=== PATIENT | male | born 1990 | race American Indian/Alaskan Native ===

== ENCOUNTER 2021-11-22 02:46 | Emergency (ER) | payer SELFPAY ==
[2021-11-22] MEDS ORDERED: ONDANSETRON 4 MG/2 ML INJ IV ONE (03:36)
[2021-11-22] MEDS ORDERED: SODIUM CHLORIDE 0.9% 1000 ML 1,000 ML IV ONE (03:36)
[2021-11-22] MEDS ORDERED: fentaNYL 100 MCG/2 ML INJ IV ONE (03:36)
--- NOTE | 2021-11-22 03:40 | Emergency Department Report ---
HPI - [facility] HPI: Room 20 Patient is a 31-year-old male present with a chief complaint of abdominal pain. Patient states his symptoms began approximate 2 hours ago with onset of right- sided abdominal pain described as being sharp in nature. Patient states the pain is been intermittent. Patient developed nausea vomiting. Patient currently gives his pain score 6/10. Patient states he was in his usual state of health earlier in the day. Patient denies any previous episodes of this pain <PATRIA ATKINS - Last Filed: 11/22/21 03:37> <INES MULTANI - Last Filed: 11/22/21 07:07> - General Chief Complaint: Abdominal Pain Time Seen by Provider: 11/22/21 03:27 ED Past Medical Hx - Past Medical History Previous Medical History?: No - Surgical History Past Surgical History?: No - Family History Family history: no significant - Social History Smoking Status: Current Some Day Smoker (Vape) Substance Use Type: Alcohol (Occasional), Marijuana <PATRIA ATKINS - Last Filed: 11/22/21 03:37> <INES MULTANI - Last Filed: 11/22/21 07:07> - Medications Home Medications: Home Medications Medication Instructions Recorded Confirmed Last Taken Type Acetaminophen [Non-Aspirin Extra 500 mg PO Q6HR PRN #30 tablet 11/22/21 Unknown Rx Strength] Ibuprofen [Motrin] 600 mg PO Q8H PRN #30 tablet 11/22/21 Unknown Rx Ondansetron [Zofran Odt] 4 mg PO Q8HR PRN #20 tab.rapdis 11/22/21 Unknown Rx ED Review of Systems ROS: Stated complaint: STOMACH PAINS Other details as noted in HPI Constitutional: no symptoms reported Eyes: denies: eye pain ENT: denies: throat pain Respiratory: no symptoms reported Cardiovascular: denies: chest pain Endocrine: no symptoms reported Gastrointestinal: abdominal pain, nausea, vomiting Genitourinary: denies: dysuria Musculoskeletal: denies: back pain Neurological: denies: headache <PATRIA ATKINS - Last Filed: 11/22/21 03:37> ROS: Stated complaint: STOMACH PAINS Other details as noted in HPI <INES MULTANI - Last Filed: 11/22/21 07:07> Physical Exam - Physical Exam Vital Signs: Vital Signs 11/22/21 03:06 Temperature 97.8 F Pulse Rate 53 L Respiratory 20 Rate Blood Pressure 103/65 [Right] O2 Sat by Pulse 100 Oximetry Physical Exam: GENERAL: The patient is well-developed well-nourished male lying on stretcher no t appearing to be in acute distress. [] HEENT: Normocephalic. Atraumatic. Extraocular motions are intact. Patient has moist mucous membranes. NECK: Supple. Trachea midline CHEST/LUNGS: Clear to auscultation. There is no respiratory distress noted. HEART/CARDIOVASCULAR: Regular. There is no tachycardia. There is no gallop rub or murmur. ABDOMEN: Abdomen is soft, palpation to the right side of the abdomen does not worsen the pain. There is no rebound or guarding. Patient has normal bowel sounds. There is no abdominal distention. SKIN: There is no rash. There is no edema. There is no diaphoresis. NEURO: The patient is awake, alert, and oriented. The patient is cooperative. The patient has no focal neurologic deficits. The patient has normal speech. GCS 15 MUSCULOSKELETAL: There is no CVA tenderness bilaterally. There is no evidence of acute injury. <PATRIA ATKINS - Last Filed: 11/22/21 03:37> - Physical Exam Vital Signs: Vital Signs 11/22/21 11/22/21 11/22/21 03:06 03:59 06:06 Temperature 97.8 F 98.9 F Pulse Rate 53 L 50 L 54 L Respiratory 20 15 14 Rate Blood Pressure 103/65 126/70 110/75 [Right] O2 Sat by Pulse 100 97 99 Oximetry <INES MULTANI - Last Filed: 11/22/21 07:07> ED Course Vital Signs 11/22/21 03:06 Temperature 97.8 F Pulse Rate 53 L Respiratory 20 Rate Blood Pressure 103/65 [Right] O2 Sat by Pulse 100 Oximetry <PATRIA ATKINS - Last Filed: 11/22/21 03:37> Vital Signs 11/22/21 11/22/21 11/22/21 03:06 03:59 06:06 Temperature 97.8 F 98.9 F Pulse Rate 53 L 50 L 54 L Respiratory 20 15 14 Rate Blood Pressure 103/65 126/70 110/75 [Right] O2 Sat by Pulse 100 97 99 Oximetry - Reevaluation(s) Reevaluation #1: 11/22/21 07:04 The patient is seen and examined. He is in no acute distress. There is no right lower quadrant tenderness, rebound, guarding, and there is no upper abdominal tenderness, rebound or guarding. There is a negative Cadena sign. There is negative Rovsing sign. The patient denies testicular pain, and irritative/obstructive urinary symptoms. Laboratory studies reviewed and appreciated, and are remarkable for hematuria. CT scan abdomen pelvis shows no acute findings. Patient endorses resolution of symptoms. Suspect that patient has passed a kidney stone. With the patient's consent, discussed his laboratory studies and imaging studies with himself and family members at the bedside. Discussed diet and lifestyle modifications, and importance of following up with outpatient urology for hematuria and presumed kidney stone Return precautions are reviewed. All questions answered <INES MULTANI - Last Filed: 11/22/21 07:07> ED Medical Decision Making - Differential Diagnosis Renal colic, appendicitis <PATRIA ATKINS - Last Filed: 11/22/21 03:37> - Lab Data Result diagrams: 11/22/21 04:16 11/22/21 04:16 Vital Signs 11/22/21 11/22/21 11/22/21 03:06 03:59 06:06 Temperature 97.8 F 98.9 F Pulse Rate 53 L 50 L 54 L Respiratory 20 15 14 Rate Blood Pressure 103/65 126/70 110/75 [Right] O2 Sat by Pulse 100 97 99 Oximetry Lab Results 11/22/21 11/22/21 11/22/21 Range/Units 04:16 04:16 04:16 WBC 10.5 (4.5-11.0) K/mm3 RBC 4.70 (3.65-5.03) M/mm3 Hgb 13.7 (11.8-15.2) gm/dl Hct 42.1 (35.5-45.6) % MCV 90 (84-94) fl MCH 29 (28-32) pg MCHC 33 (32-34) % RDW 13.0 L (13.2-15.2) % Plt Count 226 (140-440) K/mm3 Lymph % (Auto) 8.8 L (13.4-35.0) % [place] % (Auto) 7.4 H (0.0-7.3) % Eos % (Auto) 0.7 (0.0-4.3) % Baso % (Auto) 0.2 (0.0-1.8) % Lymph # (Auto) 0.9 L (1.2-5.4) K/mm3 [place] # (Auto) 0.8 (0.0-0.8) K/mm3 Eos # (Auto) 0.1 (0.0-0.4) K/mm3 Baso # (Auto) 0.0 (0.0-0.1) K/mm3 Seg Neutrophils % 82.9 H (40.0-70.0) % Seg Neutrophils # 8.7 H (1.8-7.7) K/mm3 Sodium 141 (137-145) mmol/L Potassium 3.9 (3.6-5.0) mmol/L Chloride 103.6 (98-107) mmol/L Carbon Dioxide 27 (22-30) mmol/L Anion Gap 14 mmol/L BUN 9 (9-20) mg/dL Creatinine 1.0 (0.8-1.3) mg/dL Estimated GFR > 60 ml/min BUN/Creatinine Ratio 9 % Glucose 92 (75-100) mg/dL Calcium 9.2 (8.4-10.2) mg/dL Total Bilirubin 0.80 (0.1-1.2) mg/dL AST 14 (5-40) units/L ALT 9 (7-56) units/L Alkaline Phosphatase 89 (35-129) units/L Total Creatine Kinase 132 (55-170) units/L Total Protein 6.7 (6.3-8.2) g/dL Albumin 4.4 (3.9-5) g/dL Albumin/Globulin Ratio 1.9 % Urine Color (Yellow) Urine Turbidity (Clear) Urine pH (5.0-7.0) Ur Specific [place] (1.003-1.030) Urine Protein (Negative) mg/dL Urine Glucose (UA) (Negative) mg/dL Urine Ketones (Negative) mg/dL Urine Blood (Negative) Urine Nitrite (Negative) Ur Reducing Substances Urine Bilirubin (Negative) Urine Ictotest Urine Urobilinogen (<2.0) mg/dL Ur Leukocyte Esterase (Negative) Urine WBC (Auto) (0.0-6.0) /HPF Urine RBC (Auto) (0.0-6.0) /HPF U Epithel Cells (Auto) (0-13.0) /HPF Urine Bacteria (Auto) (Negative) /HPF Urine Mucus /HPF 11/22/21 Range/Units 06:03 WBC (4.5-11.0) K/mm3 RBC (3.65-5.03) M/mm3 Hgb (11.8-15.2) gm/dl Hct (35.5-45.6) % MCV (84-94) fl MCH (28-32) pg MCHC (32-34) % RDW (13.2-15.2) % Plt Count (140-440) K/mm3 Lymph % (Auto) (13.4-35.0) % [place] % (Auto) (0.0-7.3) % Eos % (Auto) (0.0-4.3) % Baso % (Auto) (0.0-1.8) % Lymph # (Auto) (1.2-5.4) K/mm3 [place] # (Auto) (0.0-0.8) K/mm3 Eos # (Auto) (0.0-0.4) K/mm3 Baso # (Auto) (0.0-0.1) K/mm3 Seg Neutrophils % (40.0-70.0) % Seg Neutrophils # (1.8-7.7) K/mm3 Sodium (137-145) mmol/L Potassium (3.6-5.0) mmol/L Chloride (98-107) mmol/L Carbon Dioxide (22-30) mmol/L Anion Gap mmol/L BUN (9-20) mg/dL Creatinine (0.8-1.3) mg/dL Estimated GFR ml/min BUN/Creatinine Ratio % Glucose (75-100) mg/dL Calcium (8.4-10.2) mg/dL Total Bilirubin (0.1-1.2) mg/dL AST (5-40) units/L ALT (7-56) units/L Alkaline Phosphatase (35-129) units/L Total Creatine Kinase (55-170) units/L Total Protein (6.3-8.2) g/dL Albumin (3.9-5) g/dL Albumin/Globulin Ratio % Urine Color Dark yellow (Yellow) Urine Turbidity Cloudy (Clear) Urine pH 6.5 (5.0-7.0) Ur Specific [place] 1.030 (1.003-1.030) Urine Protein 30 mg/dl (Negative) mg/dL Urine Glucose (UA) Negative (Negative) mg/dL Urine Ketones Trace (Negative) mg/dL Urine Blood Large A (Negative) Urine Nitrite Negative (Negative) Ur Reducing Substances Not Reportable Urine Bilirubin Negative (Negative) Urine Ictotest Not Reportable Urine Urobilinogen < 2.0 (<2.0) mg/dL Ur Leukocyte Esterase Negative (Negative) Urine WBC (Auto) < 1.0 (0.0-6.0) /HPF Urine RBC (Auto) > 182.0 (0.0-6.0) /HPF U Epithel Cells (Auto) 1.0 (0-13.0) /HPF Urine Bacteria (Auto) 1+ (Negative) /HPF Urine Mucus 1+ /HPF - Radiology Data Radiology results: report reviewed, image reviewed CT ABDOMEN AND PELVIS WITHOUT AND WITH CONTRAST INDICATION / CLINICAL INFOR MATION: Right-sided abdominal pain. Nausea with vomiting. TECHNIQUE: Axial CT images were obtained through the abdomen and pelvis before and after 100 cc Omnipaque [address] scans at this location are performed using CT dose reduction for ALARA by means of automated exposure control. COMPARISON: None available. FINDINGS: LOWER CHEST: No significant abnormality. LIVER: No significant abnormality. GALLBLADDER: No significant abnormality. BILE DUCTS: No significant abnormality. PANCREAS: No significant abnormality. SPLEEN: No significant abnormality. ADRENALS: No significant abnormality. RIGHT KIDNEY/URETER: No significant abnormality. LEFT KIDNEY/URETER: No significant abnormality. STOMACH/SMALL BOWEL: Mild thickening is noted along the gastric body without other acute findings. COLON: No significant abnormality. APPENDIX: No significant abnormality. PERITONEUM: No free fluid. No free air. No fluid collection. LYMPH NODES: No significant adenopathy. VASCULATURE: No significant abnormality. URINARY BLADDER: No significant abnormality. REPRODUCTIVE ORGANS: No significant abnormality. ADDITIONAL FINDINGS: None. BONES: No significant abnormality IMPRESSION: Questionable gastritis without other acute findings to explain the patient's complaints. Signer Name: Josesito Clancy MD Signed: 11/22/2021 5:24 AM Workstation Name: [id number] <INES MULTANI - Last Filed: 11/22/21 07:07> Critical care attestation.: If time is entered above; I have spent that time in minutes in the direct care of this critically ill patient, excluding procedure time. <ROSEMARIE ATKINSKE Joshua - Last Filed: 11/22/21 03:37> Critical care attestation.: If time is entered above; I have spent that time in minutes in the direct care of this critically ill patient, excluding procedure time. <INES MULTANI - Last Filed: 11/22/21 07:07> ED Disposition <WILBERTPATRIA Joshua - Last Filed: 11/22/21 03:37> Is pt being admited?: No Does the pt Need Aspirin: No <INES MULTANI - Last Filed: 11/22/21 07:07> Clinical Impression: Hematuria, Right lower quadrant abdominal pain Disposition: 01 HOME / SELF CARE / HOMELESS Condition: Good Instructions: Hematuria, Adult, Renal Colic, [id number] Additional Instructions: Please follow-up with an outpatient urologist within the next 2 weeks. Avoid consumption of alcohol, tobacco, smoke products, heavy and spicy foods. Please consume at least 4 to 6 cups of water per day. Patient may take the pain medications as needed and directed. Please return to the emergency room right away with new pain, worsened pain, migration of pain, projectile vomiting, change in mental status, confusion, inability tolerate liquid feeds, new, worsened or different symptoms not present on the initial emergency room evaluation Referrals: PRIMARY CAREMD [Primary Care Provider] - 3-5 Days [facility] [Provider Group] - 3-5 Days Forms: Work/School Release Form(ED)
[2021-11-22 04:43] LABS: Basophils % (Auto) 0.2 % (0.0-1.8); Eosinophils # (Auto) 0.1 K/mm3 (0.0-0.4); Eosinophils % (Auto) 0.7 % (0.0-4.3); Hematocrit 42.1 % (35.5-45.6); Hemoglobin 13.7 gm/dl (11.8-15.2); Lymphocytes # (Auto) 0.9 K/mm3 (1.2-5.4); Lymphocytes % (Auto) 8.8 % (13.4-35.0); Mean Corpuscular HGB Conc 33 % (32-34); Mean Corpuscular Volume 90 fl (84-94); Monocytes # (Auto) 0.8 K/mm3 (0.0-0.8); Monocytes % (Auto) 7.4 % (0.0-7.3); Platelet Count 226 K/mm3 (140-440)
[2021-11-22 04:54] LABS: Alanine Aminotransferase 9 units/L (7-56); Albumin 4.4 g/dL (3.9-5); BUN/Creatinine Ratio 9; Blood Urea Nitrogen 9 mg/dL (9-20); Calcium 9.2 mg/dL (8.4-10.2); Hemolysis Index 5
[2021-11-22 06:07] VITALS: BP 110/75
--- NOTE | 2021-11-22 06:29 | Cat Scan Report ---
CT ABDOMEN AND PELVIS WITHOUT AND WITH CONTRAST INDICATION / CLINICAL INFORMATION: Right-sided abdominal pain. Nausea with vomiting. TECHNIQUE: Axial CT images were obtained through the abdomen and pelvis before and after 100 cc Omnipaque [address] scans at this location are performed using CT dose reduction for ALARA by means of automated exposure control. COMPARISON: None available. FINDINGS: LOWER CHEST: No significant abnormality. LIVER: No significant abnormality. GALLBLADDER: No significant abnormality. BILE DUCTS: No significant abnormality. PANCREAS: No significant abnormality. SPLEEN: No significant abnormality. ADRENALS: No significant abnormality. RIGHT KIDNEY/URETER: No significant abnormality. LEFT KIDNEY/URETER: No significant abnormality. STOMACH/SMALL BOWEL: Mild thickening is noted along the gastric body without other acute findings. COLON: No significant abnormality. APPENDIX: No significant abnormality. PERITONEUM: No free fluid. No free air. No fluid collection. LYMPH NODES: No significant adenopathy. VASCULATURE: No significant abnormality. URINARY BLADDER: No significant abnormality. REPRODUCTIVE ORGANS: No significant abnormality. ADDITIONAL FINDINGS: None. BONES: No significant abnormality IMPRESSION: Questionable gastritis without other acute findings to explain the patient's complaints. Signer Name: Josesito Clancy MD Signed: 11/22/2021 6:24 AM Workstation Name: [id number]
[2021-11-22 06:30] LABS: Bacteria,Urine 1+ /HPF (Negative); Bilirubin,Urine Negative (Negative); Color,Urine Dark Yellow (Yellow); Mucus,Urine 1+ /HPF; RBC,Urine > 182.0 /HPF (0.0-6.0); WBC,Urine < 1.0 /HPF (0.0-6.0)
[2021-11-22 06:31] LABS: Blood,Urine Large (Negative); PH,Urine 6.5 (5.0-7.0); Urobilinogen,Urine < 2.0 mg/dL (<2.0)
== END 2021-11-22 08:15 | disposition home or self-care (01) ==
LOC: ED 02:46
DX: R31.9 Hematuria, unspecified (principal); R10.31 Right lower quadrant pain; F17.200 Nicotine dependence, unspecified, uncomplicated; F10.20 Alcohol dependence, uncomplicated; F12.90 Cannabis use, unspecified, uncomplicated
CPT/HCPCS: 36415; 74178; 80053; 81001; 82550; 85025; 96360; 99284; J2405; J3010; J7030; Q9967